=== PATIENT | female | born 1960 | race Caucasian/White ===

== ENCOUNTER 2021-10-21 09:50 | Outpatient (AMB) | payer MEDICAID, SELFPAY ==
--- NOTE | 2021-10-21 11:25 | RT.TREATMENT ---
Office Procedures RT Procedures Procedures EEG Extended Monitoring Awake/Drowsy: Yes
== END 2021-10-21 11:23 | disposition home or self-care (01) ==
LOC: HODRTX 09:50
PROVIDERS: PCP Specialist; Visit Provider Family Medicine
DX: R56.9 Unspecified convulsions (principal)

== ENCOUNTER 2024-06-24 11:49 | Inpatient (IN) | payer MEDICAID, SELFPAY ==
[2024-06-24] VITALS (12 sets, daily range): BP systolic 149–172; BP diastolic 81–96; PULSE 73–104; RESP 17–98; TEMP 36.7–37.2; O2SAT 94–99; BMI 35.6; BMI 34.8
--- NOTE | 2024-06-24 | XR_ITS ---
MRI abdomen, without contrast. MRCP Date and time of exam: June 24, 2024 1413 hours INDICATIONS: Elevated liver function tests today with abdominal pain nausea and vomiting Technique: Multiple axial and coronal images of the abdomen have been obtained with the Siemens 1.5T MRI scanner. Images obtained included T1 weighted transverse images, T2-weighted transverse images, T2-weighted transverse images fat-suppressed, T2 weighted haste fat suppressed transverse images, T1 weighted images, in and out of phase images, T2-weighted coronal images, breath hold, T2 weighted haze coronal images as well as T2 weighted coronal thick slab images, MRCP. Findings: No focal liver lesions Gallstones Gallbladder wall is thickened and edematous Common hepatic or common bile duct normal size no stones No pancreatic edema No dilated pancreatic duct Negative for splenomegaly Benign bilateral small renal cyst No hydronephrosis IMPRESSION: Acute calculus cholecystitis Negative for common hepatic or common bile duct stones
--- NOTE | 2024-06-24 11:53 | EKG_ITS ---
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
--- NOTE | 2024-06-24 12:03 | XR_ITS ---
Examination: AP chest single view Technique one AP portable upright chest single view Exam date and time: June 24, 2024 at 1234 hours Comparison the 2023 INDICATIONS: Severe chest pain shortness of breath beginning 2 days ago. FINDINGS: Normal heart size No pneumonia or pulmonary edema Moderate osteopenia IMPRESSION: No active disease
--- NOTE | 2024-06-24 12:05 | PD.EDCHEST ---
ED Chest Pain RME/HPI General Chief Complaint: Chest Pain Stated Complaint: CHEST PAIN Time Seen by Provider: 06/24/24 12:01 Arrival date/time: 06/24/24 11:49 RME / HPI RME / HPI narrative: 63-year-old female patient with significant history of hypertension, diabetes mellitus, hypercholesterolemia came in for evaluation regarding midsternal chest pain. Onset of symptoms since 3 AM this morning as pain to the midsternal area, radiating to both side of the chest, described as sharp pain, severity moderate. Patient also complained of nausea. Denies any vomiting denies any diarrhea denies any cough denies any fever. Patient told me that she stopped all her diabetic and blood pressure medication because it is giving a lot of side effects. No medication was taken prior to arrival. Related Data Home Medications ?Medication ?Instructions ?Recorded ?Confirmed atorvastatin 20 mg tablet 20 mg PO QDAY 07/08/22 07/08/22 empagliflozin 12.5 mg-metformin ER 2 tab PO HS 07/08/22 07/08/22 1,000 mg tablet,extended rel 24 hr (Synjardy XR) ergocalciferol (vitamin D2) 1,250 See Rx Instructions .Route .COMPLEX 07/08/22 07/08/22 mcg (50,000 unit) capsule (Vitamin D2) hydrocodone 5 mg-acetaminophen 325 5 - 325 tab PO BID PRN Pain 07/08/22 07/08/22 mg tablet ibuprofen 800 mg tablet 800 mg PO TID 07/08/22 07/08/22 levetiracetam 1,000 mg tablet 1,000 mg PO BID 07/08/22 07/08/22 lisinopril 20 mg tablet 20 mg PO QDAY 07/08/22 07/08/22 loratadine 10 mg tablet 10 mg PO DAILY 07/08/22 07/08/22 naproxen 500 mg tablet,delayed 500 mg PO BID PRN Pain 07/08/22 07/08/22 release ondansetron HCl 4 mg tablet 4 mg PO Q8H PRN Nausea 07/08/22 07/08/22 sertraline 50 mg tablet 50 mg PO QDAY 07/08/22 07/08/22 Previous Rx's ?Medication ?Instructions ?Recorded vancomycin 1,000 mg intravenous See Rx Instructions .Route 07/16/22 injection .COMPLEX #10 ea Allergies Allergy/AdvReac Type Severity Reaction Status Date / Time codeine (From Allergy Severe itch Verified 06/24/24 11:51 Tylenol-Codeine) Review of Systems Review of Systems Narrative Review of Systems: Review of system reviewed and within normal limits except mentioned in HPI ED Exam Narrative Physical exam: VITAL SIGNS: Reviewed. GENERAL APPEARANCE: Alert and interactive, follows commands, no acute distress, HEAD AND FACE: Non-traumatic. ENT: PERRL, pink conjunctivitis, eyelid no trauma, Mucous membrane moist. NECK: Supple, nontender, no nuchal rigidity. CHEST: Substernal chest tenderness, no crepitus, no paradoxical movement, no retractions. LUNGS: Clear, well ventilated, symmetric, no rales, no wheezing, no ronchi, no stridor, good breath sounds bilaterally. HEART: Regular rate, regular rhythm, no murmur, no gallops. ABDOMEN: Soft, positive bowel sounds, nondistended, no guarding, right upper quadrant tenderness, positive Ramirez sign, no rebound, no masses, RECTAL: Deferred. GENITAL: Deferred. NEUROLOGICAL: Gross motor function intact sensory function intact, Appropriate for age. MUSCULOSKELETAL: low back nontender, full range of motion. EXTREMITIES: Nontender, full range of motion. SKIN: Color pink, dry, no rash, no lacerations, no abrasions, no contusions. LYMPHATICS: Deferred. 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 Operator NOW Care 06/24/24 12:03 Active Decision to Admit X1 Care 06/24/24 15:25 Active EKG (ED ONLY) *Do not use* NOW Care 06/24/24 11:53 Completed MRI Screening NOW Care 06/24/24 13:28 Active Consult to Gastroenterology Stat Cons 06/24/24 15:17 Ordered EKG (ED Only) Stat Exams 06/24/24 11:53 Ordered MR MRCP Stat Exams 06/24/24 Completed US gall bladder Stat Exams 06/24/24 13:13 Stop Req XR chest 1V Stat Exams 06/24/24 12:03 Completed Bilirubin,Direct Stat Lab 06/24/24 13:33 Completed CBC Stat Lab 06/24/24 12:20 Completed Comprehensive Metabolic Panel Stat Lab 06/24/24 12:20 Completed Hepatitis Acute Panel Stat Lab 06/24/24 13:33 Completed Lipase Stat Lab 06/24/24 12:20 Completed Troponin I Stat Lab 06/24/24 12:20 Completed HYDROmorphone INJ [Dilaudid Inj] Med 06/24/24 15:33 Once 1 mg IVP X1 ONE Morphine Inj Med 06/24/24 15:34 Once 4 mg IVP X1 ONE Piper/Tazo 3.375 gm Premix [Zosyn] Med 06/24/24 13:21 Discontinued 3.375 gm in 50 ml IV X1 Ringers Lactated 1000 ml [Lactated Ringers] 1,000 ml Med 06/24/24 13:21 Discontinued IV 999 mls/hr hydrALAZINE INJ [Apresoline Inj] Med 06/24/24 13:21 Discontinued 10 mg IV X1 ONE mg Hyd/Al Hyd/Car Susp [Maalox Susp] Med 06/24/24 12:35 Discontinued 30 ml PO X1 ONE Vital Signs Vital signs: Vital Signs Temperature 99.0 F 06/24/24 12:02 Pulse Rate 81 06/24/24 12:02 Respiratory Rate 20 06/24/24 12:02 Blood Pressure 172/96 H 06/24/24 12:02 Pulse Oximetry (%) 94 L 06/24/24 12:02 Oxygen Delivery Method Room Air 06/24/24 12:02 Chest Pain MDM Narrative MDM Narrative:: 63-year-old female patient with significant history of hypertension, diabetes mellitus, hypercholesterolemia came in for evaluation regarding midsternal chest pain. Onset of symptoms since 3 AM this morning as pain to the midsternal area, radiating to both side of the chest, described as sharp pain, severity moderate. Patient also complained of nausea. Denies any vomiting denies any diarrhea denies any cough denies any fever. Patient told me that she stopped all her diabetic and blood pressure medication because it is giving a lot of side effects. No medication was taken prior to arrival. EKG as interpreted by showed sinus rhythm, ventricular to 81 bpm, no ST segment elevation depression noted. CBC showed leukocytosis of 12.3 total bili of 1.9, direct bili 0.9 AST of 568 ALT of 550 alkaline phos of 177. MRCP showed acute calculus cholecystitis, no common bile duct stone or dilatation noted. Patient received IV fluids, morphine IV and IV Zosyn. Plan of care discussed with the patient, including admission. Case discussed with Dr. Persaud, general surgeon on-call, discussed the case, and was asking me if I can asked the hospitalist admit the patient. Discussed with hospitalist who admitted the patient. Patient data External records reviewed:: None Clinical information provided by:: patient and family Social determinants that could affect healthcare access:: none Patient has the following chronic illnesses:: Hypertension, diabetes mellitus not on any medication. How is presenting disease/condition affected by chronic disease/condition?: exacerbated by Evaluation data The following diagnostics were reviewed and interpreted by me:: lab results, radiology exam(s) and EKG tracing(s) Lab and/or radiology exams considered but not ordered:: None Interpretation Summary: See results MDM Medications / Prescriptions Medications or Prescriptions considered but not ordered:: None Medication administrations:: Medication Administration History Hydromorphone HCl (Hydromorphone Inj 2 Mg/Ml Vial) 1 mg IVP X1 ONE Stop: 06/24/24 15:34 Morphine Sulfate (Morphine Sulf Inj 10 Mg/Ml Vial) 4 mg IVP X1 ONE Stop: 06/24/24 15:35 Discontinued Medications Al Hydrox/Mg Hydrox/Simethicone (Mg Hyd/Al Hyd/Car (Maalox Reg) Susp 30 Ml Udc) 30 ml PO X1 ONE Stop: 06/24/24 12:36 Last Admin: 06/24/24 12:52 Dose: 30 ml Documented By: MADHURI Hydralazine HCl (Hydralazine Inj 20 Mg/Ml Vial) 10 mg IV X1 ONE Stop: 06/24/24 13:22 Last Admin: 06/24/24 13:35 Dose: 10 mg Documented By: MADHURI Piperacillin/Tazobactam/Dextrose (Zosyn) 3.375 gm in 50 mls @ 100 mls/hr IV X1 ONE Stop: 06/24/24 13:50 Last Infusion: 06/24/24 14:08 Dose: Infused Documented By: Admin: 06/24/24 13:38 Dose: 100 mls/hr Documented By: MADHURI Lactated Ringer's (Lactated Ringers) 1,000 mls @ 999 mls/hr IV .Q1H1M ONE Stop: 06/24/24 14:21 Last Admin: 06/24/24 14:42 Dose: 999 mls/hr Documented By: FC IV fluids, hydralazine, Maalox, morphine and IV Zosyn Consultations Consultation(s) initiated? (list below): Yes Consultation #1 (Physician, Specialty, Details): Dr Branch, general surgeon call, discussed case, to get DrBella Diagnosis Chest Pain Differential Diagnosis: pneumothorax, stable angina and other (Cholelithiasis, acute calculus cholecystitis) Most likely diagnosis given after review of the tests above:: Acute calculus cholecystitis Admission Indicated Admission indicated?: indicated Admission Request Was there a request for admission?: Yes Admission Attestation Admission request attestation: Discussed case with [Dr. Hylton] from Hospitalist service regarding admission. Discussed patients ED course, exam findings, labs, and radiology results. The Hospitalist [agrees] to accept the patient for admission. Disposition Plan Disposition Plan: Admit Discharge Plan Plan Patient Disposition: Admit Acute Care w/in Hospital Disposition Comment: Stable Prescriptions/Referrals Prescriptions/Med Rec: No Action atorvastatin 20 mg Tablet 20 mg PO QDAY ibuprofen 800 mg Tablet 800 mg PO TID hydrocodone-acetaminophen 5-325 mg Tablet 5 - 325 tab PO BID PRN (Reason: Pain) lisinopril 20 mg Tablet 20 mg PO QDAY ondansetron HCl 4 mg Tablet 4 mg PO Q8H PRN (Reason: Nausea) naproxen 500 mg Tablet,Delayed Release (Dr/Ec) 500 mg PO BID PRN (Reason: Pain) ergocalciferol (vitamin D2) [Vitamin D2] 1,250 mcg (50,000 unit) Capsule See Rx Instructions .ROUTE .COMPLEX Rx Instructions: 1,250 mcg orally q thursday sertraline 50 mg Tablet 50 mg PO QDAY loratadine 10 mg Tablet 10 mg PO DAILY levetiracetam 1,000 mg Tablet 1,000 mg PO BID Synjardy XR 12.5-1,000 mg Tablet, Ir - Er, Biphasic 24hr 2 tab PO HS vancomycin 1,000 mg recon soln See Rx Instructions .ROUTE .COMPLEX Qty: 10 0RF Rx Instructions: 1gm IV QD till 07/24/22 Referrals: Brea Gonsales PA-C [Primary Care Provider] - In 1 week Problem List Clinical Impression: Acute calculous cholecystitis Patient/Caregiver Discharge Instructions Print Language: Bengali Stand Alone Forms: Clotilde Award Info., Patient Portal Info Letter
--- NOTE | 2024-06-24 12:21 | PC.NURSE ---
Patient in room on [facility]. Patient states chest pain described as pressure that started approx 3AM this morning that woke her from her sleep. Patient stated she took an aspirin around 5AM with no relief. Patient connected to monitors. Workup in progress.
[2024-06-24 12:32] LABS: Basophils # (Auto) 0.1 Thou/mm3 (0.0-0.2); Basophils % (Auto) 1 % (0-2.5); Eosinophils # (Auto) 0.2 Thou/mm3 (0.0-0.5); Eosinophils % (Auto) 1 % (0-10); Hematocrit 41.9 % (36.0-46.0); Hemoglobin 14.3 g/dL (12.0-16.0); Immature Granulocytes % (Auto) 1 % (0-0); Immature Granulocytes Auto 0.07 Thou/mm3 (0.00-0.00); Lymphocytes # (Auto) 2.2 Thou/mm3 (1.0-4.8); Lymphocytes % (Auto) 18 % (10-50); Mean Corpuscular HGB Conc 34.1 g/dl (31.0-37.0); Mean Corpuscular Hemoglobin 29.9 pg (25.0-35.0); Mean Corpuscular Volume 88 fL (80-100); Monocytes # (Auto) 0.9 Thou/mm3 (0.0-0.8); Monocytes % (Auto) 7 % (0-12); Neutrophils # (Auto) 8.8 Thou/mm3 (1.8-7.7); Neutrophils % (Auto) 72 % (37-80); Nucleated Red Blood Cell % 0 /100 WBC (0); Platelet Count 285 Thou/mm3 (140-440); RDW Standard Deviation 42.9 fL (36.4-46.3); Red Blood Count 4.79 Miln/mm3 (4.00-5.20); White Blood Count 12.3 Thou/mm3 (3.6-11.0)
[2024-06-24 12:51] LABS: Alanine Aminotransferase 550 U/L (10-49); Albumin, Serum 4.4 gm/dL (3.4-4.8); Albumin/Globulin Ratio 1.6 (1.2-2.2); Alkaline Phosphatase 177 U/L (46-116); Anion Gap 7 (7-16); Aspartate Amino Transferase 568 U/L (0-34); BUN/Creatinine Ratio 13 Ratio (12-20); Bilirubin,Total 1.9 mg/dL (0.3-1.2); Blood Urea Nitrogen 9 mg/dL (9-23); Calcium 9.2 mg/dL (8.3-10.6); Calcium (Corrected) 9.2 mg/dL (8.5-10.1); Carbon Dioxide 24.5 mMol/L (20.0-31.0); Chloride 107 mMol/L (98-107); Creatinine (Component) 0.7 mg/dL (0.6-1.3); Estimated Creatinine Clearance 81.8 mL/min (>60); Globulin 2.8 gm/dL (2.3-3.5); Glucose 161 mg/dL (74-106); Lipase 27 U/L (12-53); Osmolality,Calculated 277 (275-295); Potassium 4.2 mMol/L (3.4-5.1); Sodium 138 mMol/L (136-145); Total Protein 7.2 gm/dL (5.7-8.2); Troponin I < 0.020 ng/mL (0.0-0.045); eGFR > 60 See Note
[2024-06-24] MEDS: MG HYD/AL HYD/SIME (Maalox Reg) SUSP 30 ML UDC PO (12:52)
--- NOTE | 2024-06-24 13:13 | XR_ITS ---
Examination: Abdomen sonogram, Limited Date and time of exam: June 24, 2024 1447 hours INDICATIONS: Epigastric pain and vomiting today Technique: Real-time olivo scale transabdominal sonographic images of the upper abdomen obtained. Findings: Calcifications in the gallbladder wall, 18 mm gallstone Gallbladder wall 0.3 cm Common bile duct 0.3 cm Pancreatic head 2.8 cm Liver 17.5 cm fatty infiltration Normal hepatopedal portal venous flow Patent IVC IMPRESSION: Porcelain gallbladder Cholelithiasis, negative for cholecystitis Mild hepatomegaly
[2024-06-24] MEDS: hydrALAZINE INJ 20 MG/ML VIAL 10 MG IV (13:35)
[2024-06-24] MEDS: PIPER/TAZO 3.375 GM PREMIX 3.375 GM/50 ML BAG IV ×2 (13:38→16:54)
[2024-06-24 14:11] LABS: Bilirubin,Direct 0.9 mg/dL (0.0-0.3)
[2024-06-24] MEDS: RINGERS LACTATED 1000 ML 1,000 ML 999 ML IV (14:42)
[2024-06-24 14:43] LABS: Hepatitis A Antibody IgM Non Reactive (Non React); Hepatitis B Core Antibody IgM Non Reactive (Non React); Hepatitis B Surface Antigen Non Reactive (Non React); Hepatitis C Antibody Non Reactive (Non React)
[2024-06-24] MEDS: MORPHINE SULF INJ 10 MG/ML VIAL 4 MG IVP (15:49)
--- NOTE | 2024-06-24 16:07 | EKG_ITS ---
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
--- NOTE | 2024-06-24 16:23 | ESHP_ITS ---
<Statement entered by Donald Borrego MD - 06/25/24 07:38> I discussed with and supervised the clinical nursing intern physician involved in the care of this patient. Patient assessment and plan was discussed with entire medicine team, including my attending. I agree with the assessment and plan as documented by clinical nursing intern doctor. Patient care was discussed with my attending physician Dr. Benjamin Borrego, PGY-2 Documentation for date of: 06/24/24 HPI History of Present Illness Chief complaint: Abdominal pain. History of present illness: Ms. Russell is a 63-year-old female with past medical history of [id number] type 2 diabetes mellitus, asthma, dyslipidemia, seizure disorder, history of meningioma, essential hypertension and obesity who presented to [facility] emergency department on 06/24/2024 with a chief complaint of abdominal pain. Patient describes the pain in epigastric region, radiating down to the right and left upper quadrant, reports significant tenderness. Patient reported that the pain started 3 AM in the morning radiating to chest, patient describes the pain as sharp, 10/10 associated with nausea and dry heaving. Patient also complains of excessive diaphoresis during the pain episode and does complain of chills as well. Patient also complains of throbbing headache. Patient denies any vomiting, diarrhea, cough, fever, dizziness, shortness of breath, and syncope like episodes. Patient reports taking no medications at home, reported that she stopped medications about 6 months ago, denies having a seizure recently, did report that she did have 1 episode of seizure but did not follow-up with primary care physician or neurologist. Patient reports she has been taking aspirin daily at home, last aspirin dose this morning. Otherwise denies taking any medications. Patient is noncompliant with medications, has longstanding history of medical noncompliance. ED Course: ED Vitals: ED vitals blood pressure 172/96, heart rate 91, respiratory 20, temp 99.0, O2 sat 94 on room air ED Labs: ED labs significant for WBC 12.3, hemoglobin 14.3, hematocrit 41.9, MCV 88, MCH 29.9, MCHC 34.1, platelet count 285, sodium 138, potassium 4.2, chloride 170, venous CO2 24.5, BUN 9, creatinine 0.7, GFR more than 60, glucose 161, calcium 9.2, total bilirubin 1.9, direct bilirubin 0.9, AST 568 ALT 550, alk phos 177, troponin negative, albumin 4.4, globulin 2.8 lipase 27 and hep panel was nonreactive. ED Imaging:Gallbladder ultrasound shows porcelain gallbladder, cholelithiasis negative for cholecystitis chest x-ray shows no active disease MRCP shows acute calculus cholecystitis ED Treatment: Patient was given Maalox x 1, hydralazine 10 mg IV x 1, and Zosyn x 1, 1 L LR bolus and morphine 4 mg IVP x 1 in ED. General surgery was consulted in ED, recommended admission. Review of Systems Review of Systems Narrative Review of Systems: ROS: -CONSTITUTIONAL: Denies weight loss, positive for fever and chills. -HEENT: Denies changes in vision and hearing. -RESPIRATORY: Denies SOB and cough. -CV: Denies palpitations and Chest Pain. -GI: Positive for abdominal pain, nausea, vomiting, denies constipation and diarrhea. -: Denies dysuria and urinary frequency. -MSK: Denies myalgia and joint pain. -SKIN: Denies rash and pruritus. -NEUROLOGICAL: Denies headache and syncope. Positive for history of seizures. -PSYCHIATRIC: Denies recent changes in mood. Denies anxiety and depression. Past Medical History Past Medical History Comments PMH COMMENT: PMH: Positive for [id number]-xcdbsbngz type 2 diabetes mellitus, asthma, dyslipidemia, seizure disorder, history of meningioma, essential hypertension and obesity. Endorses history of depression, was on Prozac in the past. PSHx: CT-guided abscess drainage for parotid gland. Allergies: Codeine?itching Social history: -Smoking: Current active smoker-smokes 1 pack in 3 to 4 days, since she was 17. 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 Exam Vital Signs Temp Pulse Resp BP Pulse Ox O2 Del Method 98.1 F 92 20 149/92 H 98 Room Air 06/24/24 16:00 06/24/24 16:21 06/24/24 16:21 06/24/24 16:00 06/24/24 16:21 06/24/24 16:00 Narrative Exam Physical Exam General: Awake and in no acute distress. Conversational and non-toxic appearing. HEENT: Normocephalic, atraumatic, mucous membranes moist. Heart: Tachycardic and regular rhythm, no murmurs. Lungs: Clear to auscultation with no wheezing or crackles. Abdomen: Soft, nondistended, positive tenderness noted epigastrium, right upper quadrant and left upper quadrant. Neurologic: Alert and oriented x3, no gross neurological deficit, and patient able to move all 4 extremities. Extremities: No edema. Skin: No rash or ecchymoses. Results: Labs 06/25/24 04:33 06/25/24 04:33 Labs: Short CBC 06/24/24 Range/Units 12:20 WBC 12.3 H (3.6-11.0) Thou/mm3 Hgb 14.3 (12.0-16.0) g/dL Hct 41.9 (36.0-46.0) % Plt Count 285 (140-440) Thou/mm3 BMP 06/24/24 12:20 Sodium 138 Potassium 4.2 Chloride 107 Carbon Dioxide 24.5 BUN 9 Creatinine 0.7 Glucose 161 H Calcium 9.2 Cardiac Enzymes 06/24/24 Range/Units 12:20 Troponin I < 0.020 (0.0-0.045) ng/mL Liver Function 06/24/24 06/24/24 Range/Units 12:20 13:33 Total Bilirubin 1.9 H (0.3-1.2) mg/dL Direct Bilirubin 0.9 H (0.0-0.3) mg/dL AST 568 H* (0-34) U/L ALT 550 H* (10-49) U/L Alkaline Phosphatase 177 H (46-116) U/L Albumin 4.4 (3.4-4.8) gm/dL Quality Measures Quality Measures none Medications Home Medications and Allergies Home Medications ?Medication ?Instructions ?Recorded ?Confirmed ?Type atorvastatin 20 mg tablet 20 mg PO QDAY 07/08/2206/24 History empagliflozin 12.5 mg-metformin ER 2 tab PO HS 3 06/24/24 History 1,000 mg tablet,extended rel 24 hr (Synjardy XR) ergocalciferol (vitamin D2) 1,250 See Rx Instructions .Route .COMPLEX 07/08/22 06/24/24 History mcg (50,000 unit) capsule (Vitamin D2) hydrocodone 5 mg-acetaminophen 325 5 - 325 tab PO BID PRN Pain 07/08/22 06/24/24 History mg tablet levetiracetam 1,000 mg tablet 1,000 mg PO BID 07/08/22 06/24/24 History lisinopril 20 mg tablet 20 mg PO QDAY 07/08/2206/24 History loratadine 10 mg tablet 10 mg PO DAILY 07/08/2206/07 History naproxen 500 mg tablet,delayed 500 mg PO BID PRN Pain 07/08/22 06/24/24 History release ondansetron HCl 4 mg tablet 4 mg PO Q8H PRN Nausea 05/0106/24/24 History sertraline 50 mg tablet 50 mg PO QDAY 07/08/2206/24 History tirzepatide 2.5 mg/0.5 mL 2.5 mg subcut QWEEK 06/24/24 06/24/24 History subcutaneous pen injector (Lazara) Allergies Allergy/AdvReac Type Severity Reaction Status Date / Time codeine (From Allergy Severe itch Verified 06/24/24 11:51 Tylenol-Codeine) Visit Medications Acetaminophen (Acetaminophen 325 Mg Tablet) 650 mg PO Q6H PRN PRN Reason: Pain (1-3) & Fever >101.5 Stop: 07/24/24 15:59 Hydrocodone Bitart/Acetaminophen (Hydrocodone/Apap 5/325 Tablet) 1 tab PO Q4HR PRN PRN Reason: PAIN SCALE 4-6 (Moderate Stop: 06/29/24 16:04 Al Hydrox/Mg Hydrox/Simethicone (Mg Hyd/Al Hyd/Car (Maalox Reg) Susp 30 Ml Udc) 30 ml PO Q6H PRN PRN Reason: Indigestion Stop: 07/24/24 16:04 Albuterol/Ipratropium (Albuterol/Ipratropium (Duoneb) Rt Cornelia 3 Ml Nebu) 3 ml INH Q2HR PRN PRN Reason: SHORTNESS OF BREATH OR WHEEZE Stop: 07/24/24 15:59 Amlodipine Besylate (Amlodipine Besylate 5 Mg Tablet) 5 mg PO QDAY [facility] Stop: 07/24/24 16:29 Dextrose (Dextrose 50%-Water Inj 50 Ml Syringe) 25 ml IV Q15MIN PRN PRN Reason: BG 50-70 responsive npo pt Stop: 07/24/24 16:10 Dextrose (Dextrose 50%-Water Inj 50 Ml Syringe) 50 ml IV Q15MIN PRN PRN Reason: BG <50 OR BG <70 & pt unresponsive Stop: 07/24/24 16:10 Famotidine (Famotidine Inj 10 Mg/Ml Vial 2 Ml) 20 mg IVP QDAY [facility] Stop: 07/24/24 16:14 Glucagon (Glucagon Inj 1 Mg Vial) 1 mg IM Q15MIN PRN PRN Reason: BG <70, and no IV access Heparin Sodium (Porcine) (Heparin Sod Inj 5000 Unit/Ml Vial) 5,000 unit SC Q12H [facility] Stop: 07/08/24 21:59 Piperacillin/Tazobactam/Dextrose (Zosyn) 3.375 gm in 50 mls @ 12.5 mls/hr IV Q8H [facility] Stop: 07/01/24 16:59 Insulin Human Regular (Insulin Hum Regular 1 Unit/0.01 Ml (Per Unit)) 0 unit SC [facility]; Protocol Stop: 07/24/24 16:59 Morphine Sulfate (Morphine Sulf Inj 10 Mg/Ml Vial) 2 mg IVP Q4H PRN PRN Reason: PAIN SCALE 7-10 (Severe Stop: 06/29/24 16:04 Ondansetron HCl (Ondansetron Inj 2 Mg/Ml Inj 2 Ml) 4 mg IV Q6H PRN; Protocol PRN Reason: NAUSEA OR VOMITING Stop: 07/24/24 16:04 Discontinued Medications Al Hydrox/Mg Hydrox/Simethicone (Mg Hyd/Al Hyd/Car (Maalox Reg) Susp 30 Ml Udc) 30 ml PO X1 ONE Stop: 06/24/24 12:36 Last Admin: 06/24/24 12:52 Dose: 30 ml Amlodipine Besylate (Amlodipine Besylate 5 Mg Tablet) 10 mg PO QDAY [facility] Stop: 07/24/24 16:29 Hydralazine HCl (Hydralazine Inj 20 Mg/Ml Vial) 10 mg IV X1 ONE Stop: 06/24/24 13:22 Last Admin: 06/24/24 13:35 Dose: 10 mg Hydromorphone HCl (Hydromorphone Inj 2 Mg/Ml Vial) 1 mg IVP X1 ONE Stop: 06/24/24 15:34 Last Admin: 06/24/24 15:48 Dose: Not Given Piperacillin/Tazobactam/Dextrose (Zosyn) 3.375 gm in 50 mls @ 100 mls/hr IV X1 ONE Stop: 06/24/24 13:50 Last Infusion: 06/24/24 14:08 Dose: Infused Lactated Ringer's (Lactated Ringers) 1,000 mls @ 999 mls/hr IV .Q1H1M ONE Stop: 06/24/24 14:21 Last Infusion: 06/24/24 15:40 Dose: Infused Morphine Sulfate (Morphine Sulf Inj 10 Mg/Ml Vial) 4 mg IVP X1 ONE Stop: 06/24/24 15:35 Last Admin: 06/24/24 15:49 Dose: 4 mg Assessment & Plan Plan Assessment and plan: Summary: Ms. Russell is a 63-year-old female with past medical history of yns-rjkjugb-zvhewgviv type 2 diabetes mellitus, asthma, dyslipidemia, seizure disorder, history of meningioma, essential hypertension and obesity who presented to [facility] emergency department on 06/24/2024 with a chief complaint of abdominal pain. #Acute calculus cholelithiasis #Transaminitis secondary to above #Hyperbilirubinemia secondary to above #Elevated Alk Phos. secondary to above Patient had epigastric pain, radiating to the left upper quadrant, 10 on 10, sharp, radiating to chest at times associated with nausea dry heaving chills and diaphoresis, started suddenly in the morning around 3 AM. Gallbladder ultrasound shows porcelain gallbladder, cholelithiasis negative for cholecystitis. MRCP shows acute calculus cholecystitis Total bilirubin 1.9, direct bilirubin 0.9, AST 568 ALT 550, alk phos 177, troponin negative. Lipase negative. RCRI risk score:2 , METS > 4 Plan: -Scheduled for surgical intervention in a.m., n.p.o. after midnight -Pain management with Tylenol, [place], IV morphine as needed -IV Zosyn 3.375 every 8 hours prophylactic -Zofran as needed for nausea and vomiting -General surgery consulted, appreciate recommendations -Follow CMP in a.m. -Will consult cardiology for cardiac clearance preop -Will hold on any anticoagulation in a.m., hold aspirin #Seizure disorder #Meningioma, by history Patient reports taking no medications at home, reported that she stopped medications about 6 months ago, denies having a seizure recently, did report that she did have 1 episode of seizure but did not follow-up with primary care physician or neurologist. Patient was on Keppra 1000 mg twice daily previously. - Resumed IV Keppra 1000 mg twice daily - Consulted neurology, appreciate recommendations - Seizure precaution - Aspiration precaution #Congestive heart failure with mid-range ejection fraction, EF 45 to 50% (2022) Poor outpatient follow-up, is not on any medications, currently not in any acute exacerbation ECHO 2022: Normal LV size, low normal systolic function. Moderate hypokinesis apical and mid septal wall motion. Estimated EF 45-50% Normal RV size and function. Trace TR. Plan: - Consulted cardiology, appreciate recommendations - Strict intake and output - Daily weight - Fluid restriction 1800 cc - Ordered echocardiogram #Hypertensive urgency #Throbbing headache #Hypertension Patient presented with blood pressure 172/96, was given hydralazine 10 mg IV x 1 in emergency department Plan: - As needed IV hydralazine every 6 hours for SBP greater than 160, diastolic blood pressure greater than 100 - Amlodipine 5 mg daily #Type 2 diabetes mellitus July 2022 hemoglobin A1c 9.6 - Sliding scale insulin - Inpatient blood glucose goal 140-180 - Hypoglycemia protocol - Fingerstick ACHS - Follow hemoglobin A1c in a.m. #Hyperlipidemia Will hold statins in setting of transaminitis Follow lipid panel in a.m. #Asthma DuoNeb as needed DVT prophylaxis: Heparin every 12 hours GI prophylaxis: Famotidine IV Diet: Carb consistent diet, n.p.o. after midnight Lines: Peripheral IV Code status: Full code Case discussed with Attending Dr. Alexander and Dr. Borrego PGY2. Mark Hylton PGY1 Disclaimer: This note was dictated by speech recognition. Minor errors in financial supervisor may be present due to voice recognition software. Attending Provider Attestation/Addendum I have discussed and was present for the essential components of the history, physical examination, diagnosis, and treatment plan with the resident. I agree with the patient's care as documented by the resident and amended herein by me. Bertram Alexander DO. Although this document has been carefully reviewed, there may still be some phonetic and other typographical errors. These errors are purely grammatical due to imperfections in the software program and should not be construed in any way to compromise the substance of the patient's medical care during this visit.
[2024-06-24] MEDS: FAMOTIDINE INJ 10 MG/ML VIAL 2 ML 20 MG IVP (16:53)
[2024-06-24] MEDS: amLODIPine BESYLATE 5 MG TABLET PO (16:53)
--- NOTE | 2024-06-24 19:12 | PD.SURCONS ---
HPI Consult details Consult date: 06/24/24 Reason for consultation narrative: Patient was seen in consultation because of gallstones and acute cholecystitis History of present illness: History of present illness revealed that the patient has had severe pain starting last night in the retrosternal area and in the upper abdomen radiating to both sides. She had no vomiting but she was nauseated. She denies having any such symptoms. She thought that she had a cardiac issue and therefore came to the emergency room and was found to have gallstones with possible acute cholecystitis. Patient has been diagnosed with gallstones back in 2022 but apparently no surgery was done. Patient had multiple medical problems including diabetes hypertension meningioma seizures. Past surgery consisted of some cyst from the abdomen while she was 22 years old. She also had multiple abscesses in the neck in the parotid region which was drained by me in 2022. She used to weigh more and she has lost some weight. She is a poor historian. Past Medical History Past Medical History NEUROLOGIC: Negative Seizures CARDIAC: Negative Cardiac Disorders or Congestive Heart Failure RESPIRATORY: Positive Asthma; Negative Respiratory Disorders or Chronic Obstructive Pulmonary Disease (COPD) GASTROINTESTINAL: Positive Gall Bladder Disease, Ulcer, Gastroesophageal Reflux Disease and Obesity GENITOURINARY: Negative Renal Disease MUSCULOSKELETAL: Positive Arthritis ENDOCRINE: Positive Endocrine Disorders; Negative Diabetes Mellitus Type 1 or Diabetes Mellitus Type 2 HEMATOLOGIC: Negative Sickle Cell Disease OTHER HISTORY: Positive Radiation Therapy; Negative Blood Transfusions or Anesthesia Reactions Surgical History SURGICAL: Positive Hysterectomy Social History SMOKING STATUS: Current every day smoker SUBSTANCE USE: does not use Past Medical History Comments PMH COMMENT: PMH: Positive for tvj-kvjdikd-hajbvsqxh type 2 diabetes mellitus, asthma, dyslipidemia, seizure disorder, history of meningioma, essential hypertension and obesity. Endorses history of depression, was on Prozac in the past. PSHx: CT-guided abscess drainage for parotid gland. Allergies: Codeine?itching Social history: -Smoking: Current active smoker-smokes 1 pack in 3 to 4 days, since she was 17. 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 Meds Home Medications and Allergies Home Medications ?Medication ?Instructions ?Recorded ?Confirmed ?Type atorvastatin 20 mg tablet 20 mg PO QDAY 07/08/22 07/08/22 History empagliflozin 12.5 mg-metformin ER 2 tab PO HS 07/08/22 07/08/22 History 1,000 mg tablet,extended rel 24 hr (Synjardy XR) ergocalciferol (vitamin D2) 1,250 See Rx Instructions .Route .COMPLEX 07/08/22 07/08/22 History mcg (50,000 unit) capsule (Vitamin D2) hydrocodone 5 mg-acetaminophen 325 5 - 325 tab PO BID PRN Pain 07/08/22 07/08/22 History mg tablet ibuprofen 800 mg tablet 800 mg PO TID 07/08/22 07/08/22 History levetiracetam 1,000 mg tablet 1,000 mg PO BID 07/08/22 07/08/22 History lisinopril 20 mg tablet 20 mg PO QDAY 07/08/22 07/08/22 History loratadine 10 mg tablet 10 mg PO DAILY 07/08/22 07/08/22 History naproxen 500 mg tablet,delayed 500 mg PO BID PRN Pain 07/08/22 07/08/22 History release ondansetron HCl 4 mg tablet 4 mg PO Q8H PRN Nausea 07/08/22 07/08/22 History sertraline 50 mg tablet 50 mg PO QDAY 07/08/22 07/08/22 History Allergies Allergy/AdvReac Type Severity Reaction Status Date / Time codeine (From Allergy Severe itch Verified 06/24/24 11:51 Tylenol-Codeine) Exam Vital Signs Temp Pulse Resp BP Pulse Ox O2 Del Method 98.1 F 104 H 20 149/92 H 98 Room Air 06/24/24 16:00 06/24/24 16:53 06/24/24 16:21 06/24/24 16:53 06/24/24 16:21 06/24/24 16:00 Narrative Exam Physical examination revealed an obese white female who appeared to be in her stated age. She is 5 foot 1 inch tall weighing 189 pounds with BMI of 35.7. Her heart rate is around 100 when I saw her Routine Abdominal Exam Comments: Examination of the abdomen showed subcostal incision from previous exploration for some cyst the details of which are not available there is slight tenderness on palpation of the right upper quadrant. Routine Rectal Exam Comments: Deferred Routine Neurological Exam Comments: History of seizures and history of meningioma not operable Results Results: Laboratory Laboratory Narrative: Laboratory results show mildly elevated WBCs 12,400. But she has considerable elevation of the transaminases. 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 Patient had MRCP which showed acute cholecystitis but no common bile duct stone Assessment & Plan Additional Assessment Additional comments: Impression: Cholelithiasis with possible common bile duct stone, passed spontaneously Diabetes Hypertension Hyperlipidemia Obesity Plan Plan: I told the patient that she may require surgery because of the symptomatic gallstones. Elevated liver enzymes suggest that she might of passed a stone. We shall wait for symptoms to improve and consider cholecystectomy. Because of the right subcostal incision patient may require open cholecystectomy. She is agreeable.
[2024-06-24] MEDS: NICOTINE PATCH 21 MG/24 HR PATCH.TD24 TOP (20:41)
[2024-06-24] MEDS: levETIRAcetam INJ 100 MG/ML VIAL 5ML 1000 MG IVP (20:42)
[2024-06-24] MEDS: HEPARIN SOD INJ 5000 UNIT/ML VIAL SC (21:02)
[2024-06-25] VITALS (11 sets, daily range): BP systolic 103–135; BP diastolic 59–79; PULSE 80–115; RESP 17–97; TEMP 36.4–37.3; O2SAT 95–97; BMI 34.9
[2024-06-25] MEDS: PIPER/TAZO 3.375 GM PREMIX 3.375 GM/50 ML BAG IV ×3 (00:18→17:32)
[2024-06-25 05:27] LABS: Basophils # (Auto) 0.1 Thou/mm3 (0.0-0.2); Basophils % (Auto) 0 % (0-2.5); Eosinophils # (Auto) 0.3 Thou/mm3 (0.0-0.5); Eosinophils % (Auto) 2 % (0-10); Hematocrit 41.8 % (36.0-46.0); Hemoglobin 14.3 g/dL (12.0-16.0); Immature Granulocytes % (Auto) 1 % (0-0); Immature Granulocytes Auto 0.09 Thou/mm3 (0.00-0.00); Lymphocytes % (Auto) 19 % (10-50); Mean Corpuscular HGB Conc 34.2 g/dl (31.0-37.0); Mean Corpuscular Volume 88 fL (80-100); Monocytes # (Auto) 1.2 Thou/mm3 (0.0-0.8); Monocytes % (Auto) 7 % (0-12); Neutrophils # (Auto) 11.5 Thou/mm3 (1.8-7.7); Neutrophils % (Auto) 72 % (37-80); Nucleated Red Blood Cell % 0 /100 WBC (0); Platelet Count 267 Thou/mm3 (140-440); RDW Standard Deviation 43.4 fL (36.4-46.3); Red Blood Count 4.76 Miln/mm3 (4.00-5.20)
[2024-06-25 05:48] LABS: Glucose Estimated Average 151 mg/dL (80-131); Hemoglobin A1C 6.9 % Hgb (4.8-6.0)
[2024-06-25 06:16] LABS: Alanine Aminotransferase 443 U/L (10-49); Albumin/Globulin Ratio 1.5 (1.2-2.2); Alkaline Phosphatase 193 U/L (46-116); Anion Gap 8 (7-16); Aspartate Amino Transferase 270 U/L (0-34); BUN/Creatinine Ratio 10 Ratio (12-20); Bilirubin,Total 2.7 mg/dL (0.3-1.2); Blood Urea Nitrogen 8 mg/dL (9-23); Calcium 8.8 mg/dL (8.3-10.6); Calcium (Corrected) 8.8 mg/dL (8.5-10.1); Carbon Dioxide 22.5 mMol/L (20.0-31.0); Cardiac Risk Estimate 2.8 RATIO (3.7-5.6); Chloride 108 mMol/L (98-107); Cholesterol 152 mg/dL (132-200); Creatinine (Component) 0.8 mg/dL (0.6-1.3); Estimated Creatinine Clearance 73.4 mL/min (>60); Globulin 2.7 gm/dL (2.3-3.5); Glucose 130 mg/dL (74-106); HDL Cholesterol 54 mg/dL (40-60); LDL Cholesterol,Calculated 76 mg/dL (0-130); Osmolality,Calculated 275 (275-295); Phosphorous 3.2 mg/dL (2.4-5.1); Potassium 3.4 mMol/L (3.4-5.1); Sodium 138 mMol/L (136-145); Thyroid Stimulating Hormone 0.76 uIU/mL (0.55-4.78); Total Protein 6.7 gm/dL (5.7-8.2); Triglycerides 108 mg/dL (30-150); eGFR > 60 See Note
[2024-06-25] MEDS: levETIRAcetam INJ 100 MG/ML VIAL 5ML 1000 MG IVP ×2 (09:22→21:07)
[2024-06-25] MEDS: NICOTINE PATCH 21 MG/24 HR PATCH.TD24 TOP (09:22)
[2024-06-25] MEDS: FAMOTIDINE INJ 10 MG/ML VIAL 2 ML 20 MG IVP (09:22)
[2024-06-25] MEDS: ACETAMINOPHEN 325 MG TABLET 650 MG PO (09:23)
[2024-06-25] MEDS: amLODIPine BESYLATE 5 MG TABLET PO (09:23)
--- NOTE | 2024-06-25 10:21 | PC.NURSE ---
Pt complaining of being very hungry. Wanting to know when procedure will occur. Dr. Flowers is on the floor. Spoke with Dr. Flowers. Per Dr. Flowers, Patient is still waiting on cardiac clearance. Dr Flowers still wanted patient to be NPO in the instance that patient may have the procedure today. went in a spoke with the patient.
--- NOTE | 2024-06-25 11:09 | ESPR_ITS ---
Documentation for date of: 06/25/24 Subjective Subjective Brief History: History of present illness revealed that the patient has had severe pain starting last night in the retrosternal area and in the upper abdomen radiating to both sides. She had no vomiting but she was nauseated. She denies having any such symptoms. She thought that she had a cardiac issue and therefore came to the emergency room and was found to have gallstones with possible acute cho lecystitis. Patient has been diagnosed with gallstones back in 2022 but apparently no surgery was done. Patient had multiple medical problems including diabetes hypertension meningioma seizures. Past surgery consisted of some cyst from the abdomen while she was 22 years old. She also had multiple abscesses in the neck in the parotid region which was drained by me in 2022. She used to weigh more and she has lost some weight. She is a poor historian. Narrative: Patient does not have much pain and she is very hungry and wants to eat. Exam Vital Signs Temp Pulse Resp BP Pulse Ox O2 Del Method 97.6 F 99 18 134/79 H 97 Room Air 06/25/24 07:49 06/25/24 09:23 06/25/24 07:49 06/25/24 09:23 06/25/24 07:49 06/25/24 07:49 Her vital signs are normal other than mild elevation of the heart rate Routine Abdominal Exam Comments: Abdominal examination shows still tenderness in the right upper quadrant on deep palpation. But no evidence of guarding or rigidity Results Results: Laboratory Laboratory Narrative: Laboratory results shows elevation of the WBC to 16,000 Assessment & Plan Assessment Additional comments: Impression: Acute cholecystitis awaiting cardiology clearance Plan Plan: We shall proceed with surgery once her cardiology clearance is done
--- NOTE | 2024-06-25 11:18 | PD.IMCONS ---
HPI Data of Consult Requesting Physician: Dakota Alexander DO Primary Care Provider: Brea Gonsales PA-C Consult Narrative History of present illness: This is a 63-year-old female with past medical history of [id number] type 2 diabetes mellitus, asthma, dyslipidemia, seizure disorder, history of meningioma, essential hypertension and obesity Epigastric pain Subsequently noted to have cholelithiasis by ultrasound Currently planning to undergo gallbladder surgery cardiology consultation requested Patient's EKG does not show any acute ST-T wave changes, troponins are negative Patient had an echocardiographic exam done in 2022 at that time ejection fraction noted to be 45% with no significant wall motion abnormalities or valve dysfunction Currently patient denies any cardiac symptoms cc:: cc: Dakota Alexander DO Meds Home Medications and Allergies Home Medications ?Medication ?Instructions ?Recorded ?Confirmed ?Type atorvastatin 20 mg tablet 20 mg PO QDAY 07/08/22 06/24/24 History empagliflozin 12.5 mg-metformin ER 2 tab PO HS 07/08/22 06/24/24 History 1,000 mg tablet,extended rel 24 hr (Synjardy XR) ergocalciferol (vitamin D2) 1,250 See Rx Instructions .Route .COMPLEX 07/08/22 06/24/24 History mcg (50,000 unit) capsule (Vitamin D2) hydrocodone 5 mg-acetaminophen 325 5 - 325 tab PO BID PRN Pain 07/08/22 06/24/24 History mg tablet levetiracetam 1,000 mg tablet 1,000 mg PO BID 07/08/22 06/24/24 History lisinopril 20 mg tablet 20 mg PO QDAY 07/08/22 06/24/24 History loratadine 10 mg tablet 10 mg PO DAILY 07/08/22 06/24/24 History naproxen 500 mg tablet,delayed 500 mg PO BID PRN Pain 07/08/22 06/24/24 History release ondansetron HCl 4 mg tablet 4 mg PO Q8H PRN Nausea 07/08/22 06/24/24 History sertraline 50 mg tablet 50 mg PO QDAY 07/08/22 06/24/24 History tirzepatide 2.5 mg/0.5 mL 2.5 mg subcut QWEEK 06/24/24 06/24/24 History subcutaneous pen injector (Mounjaro) Allergies Allergy/AdvReac Type Severity Reaction Status Date / Time codeine (From Allergy Severe itch Verified 06/24/24 11:51 Tylenol-Codeine) Exam Vital Signs Temp Pulse Resp BP Pulse Ox O2 Del Method 97.6 F 99 18 134/79 H 97 Room Air 06/25/24 07:49 06/25/24 09:23 06/25/24 07:49 06/25/24 09:23 06/25/24 07:49 06/25/24 07:49 Routine HEENT Exam Head: Present normocephalic and atraumatic Eye: Present EOMI and PERRL ENT: Present mucous membranes moist Routine Neck Exam Neck: Present supple and trachea midline Routine Respiratory Exam Respiratory: Present chest non-tender, lungs clear, normal breath sounds and no resp distress Routine Cardiovascular Exam Cardiovascular: Present RRR Routine Abdominal Exam Abdominal: Present soft and normoactive bowel sounds Routine Extremities Exam Extremities: Present full ROM Routine Skin Exam Skin: Present intact, dry and warm Routine Neurological Exam Neurological: Present alert, oriented X3 and CN II-XII intact Routine Psychiatric Exam Psychiatric: Present normal affect and normal thought process Results Labs 06/25/24 04:33 06/25/24 04:33 Labs: Short CBC 06/24/24 06/25/24 Range/Units 12:20 04:33 WBC 12.3 H 16.0 H (3.6-11.0) Thou/mm3 Hgb 14.3 14.3 (12.0-16.0) g/dL Hct 41.9 41.8 (36.0-46.0) % Plt Count 285 267 (140-440) Thou/mm3 BMP 06/24/24 06/25/24 12:20 04:33 Sodium 138 138 Potassium 4.2 3.4 D Chloride 107 108 H Carbon Dioxide 24.5 22.5 BUN 9 8 L Creatinine 0.7 0.8 Glucose 161 H 130 H Calcium 9.2 8.8 Cardiac Enzymes 06/24/24 Range/Units 12:20 Troponin I < 0.020 (0.0-0.045) ng/mL Liver Function 06/24/24 06/24/24 06/25/24 Range/Units 12:20 13:33 04:33 Total Bilirubin 1.9 H 2.7 H D (0.3-1.2) mg/dL Direct Bilirubin 0.9 H (0.0-0.3) mg/dL AST 568 H* 270 H (0-34) U/L ALT 550 H* 443 H (10-49) U/L Alkaline Phosphatase 177 H 193 H (46-116) U/L Albumin 4.4 4.0 (3.4-4.8) gm/dL Assessment and Plan Assessment and plan (1) Acute calculous cholecystitis: Status: Acute (2) Cervical spinal cord compression: Status: Acute (3) Hypertension: Status: Acute (4) Obesity: Status: Acute (5) Preop cardiovascular exam: Status: Acute Additional Assessment & Plan Additional Plan: Patient denies any cardiac symptoms EKG is unremarkable Troponins are negative Prior echo 2 years ago was unremarkable We will consider repeating another echocardiographic exam Patient is considered to be in optimal cardiac condition for the planned surgical procedure
--- NOTE | 2024-06-25 11:25 | PC.NURSE ---
Dr Alexander and team came by to see patient. Dr. Alexander said he will order the patient a diet due to patient not having the procedure today. I informed Dr. Alexander that I spoke with Dr. Flowers this morning and he would like patient to remain NPO for possible procedure this afternoon. Dr. Alexander said he spoke to Dr. Flowers in the eng just a few minutes prior to now and that Dr. Flowers will not being doing the procedure today and patient may eat. Diet ordered for patient at 11:23.
--- NOTE | 2024-06-25 13:20 | PC.NURSE ---
Dr. Flowers called and asked if the patient was ready to go to procedure. said patient was cleared for procedure by patent examiner and Dr. Flowers can take patient now. I informed that patient already ate and the conversation I previously had with Dr. Alexander. Dr. Flowers said he never allowed for patient to eat. Pt will have to be NPO after midnight and Procedure will have to happen tomorrow.
--- NOTE | 2024-06-25 13:43 | ESPR_ITS ---
Documentation for date of: 06/25/24 Subjective Subjective Interval history: WBC up trended to 16. Labs significant for mild elevation of T. bili and ALP. Patient cleared by cardiology Dr. Sears for surgery. Per Dr. Flowers, patient might undergo cholecystectomy tonight. Exam Vital Signs Temp Pulse Resp BP Pulse Ox O2 Del Method 97.6 F 112 H 18 116/59 L 97 Room Air 06/25/24 12:00 06/25/24 12:00 06/25/24 12:00 06/25/24 12:00 06/25/24 12:06/25/24 12:00 Narrative Exam General: Awake and in no acute distress. Conversational and non-toxic appearing. HEENT: Normocephalic, atraumatic, mucous membranes moist. Heart: Tachycardic and regular rhythm, no murmurs. Lungs: Clear to auscultation with no wheezing or crackles. Abdomen: Soft, nondistended, positive tenderness noted epigastrium, right upper quadrant and left upper quadrant. Neurologic: Alert and oriented x3, no gross neurological deficit, and patient able to move all 4 extremities. Extremities: No edema. Objective Labs 06/25/24 04:33 06/25/24 04:33 Labs: Laboratory Results - last 24 hr 06/24/24 06/25/24 13:33 04:33 WBC 16.0 H RBC 4.76 Hgb 14.3 Hct 41.8 MCV 88 MCH 30.0 MCHC 34.2 RDW Std Deviation 43.4 Plt Count 267 Neut % (Auto) 72 Lymph % (Auto) 19 [place] % (Auto) 7 Eos % (Auto) 2 Baso % (Auto) 0 Neut # (Auto) 11.5 H Lymph # (Auto) 3.0 [place] # (Auto) 1.2 H Eos # (Auto) 0.3 Baso # (Auto) 0.1 Immature Gran # (Auto) 0.09 H Absolute Nucleated RBC 0.00 Immature Gran % 1 H Nucleated RBC % 0 Sodium 138 Potassium 3.4 D Chloride 108 H Carbon Dioxide 22.5 Anion Gap 8 BUN 8 L Creatinine 0.8 Estim Creat Clear Calc 73.4 eGFR > 60 BUN/Creatinine Ratio 10 L Glucose [address] Glu mg/dL 151 H Hemoglobin A1c 6.9 H Calculated Osmolality 275 Calcium 8.8 Corrected Calcium 8.8 Phosphorus 3.2 Magnesium 2.0 Total Bilirubin 2.7 H D Direct Bilirubin 0.9 H AST 270 H ALT 443 H Alkaline Phosphatase 193 H Total Protein 6.7 Albumin 4.0 Globulin 2.7 Albumin/Globulin Ratio 1.5 Triglycerides 108 Cholesterol 152 LDL Cholesterol, Calc 76 HDL Cholesterol 54 Cholesterol/HDL Ratio 2.8 L TSH 0.76 Hepatitis A IgM Ab Non Reactive Hep Bs Antigen Non Reactive Hep B Core IgM Ab Non Reactive Hepatitis C Antibody Non Reactive Quality Measures Quality Measures none Assessment & Plan Assessment Current Active Medications: Generic Name Dose Route Start Last Admin Trade Name Freq PRN Reason Stop Dose Admin Acetaminophen 650 mg 06/24/24 16:00 06/25/24 09:23 Acetaminophen 325 Mg Tablet PO 07/24/24 15:59 650 mg Q6H PRN Administration Pain (1-3) & Fever >101.5 Hydrocodone Bitart/Acetaminophen 1 tab 06/24/24 16:05 Hydrocodone/Apap 5/325 Tablet PO 06/29/24 16:04 Q4HR PRN PAIN SCALE 4-6 (Moderate Al Hydrox/Mg Hydrox/Simethicone 30 ml 06/24/24 16:05 Mg Hyd/Al Hyd/Car (Maalox Reg) Susp 30 Ml Udc PO 07/24/24 16:04 Q6H PRN Indigestion Albuterol/Ipratropium 3 ml 06/24/24 16:00 Albuterol/Ipratropium (Duoneb) Rt Cornelia 3 Ml Nebu INH 07/24/24 15:59 Q2HR PRN SHORTNESS OF BREATH OR WHEEZE Amlodipine Besylate 5 mg 06/24/24 16:30 06/25/24 09:23 Amlodipine Besylate 5 Mg Tablet PO 07/24/24 16:29 5 mg QDAY CHRISTINE Administration Dextrose 25 ml 06/24/24 16:11 Dextrose 50%-Water Inj 50 Ml Syringe IV 07/24/24 16:10 Q15MIN PRN BG 50-70 responsive npo pt Dextrose 50 ml 06/24/24 16:11 Dextrose 50%-Water Inj 50 Ml Syringe IV 07/24/24 16:10 Q15MIN PRN BG <50 OR BG <70 & pt unresponsive Dextrose 25 ml 06/25/24 11:49 Dextrose 50%-Water Inj 50 Ml Syringe IV 07/25/24 11:48 Q15MIN PRN BG 50-70 responsive npo pt Dextrose 50 ml 06/25/24 11:49 Dextrose 50%-Water Inj 50 Ml Syringe IV 07/25/24 11:48 Q15MIN PRN BG <50 OR BG <70 & pt unresponsive Famotidine 20 mg 06/24/24 16:15 06/25/24 09:22 Famotidine Inj 10 Mg/Ml Vial 2 Ml IVP 07/24/24 16:14 20 mg QDAY CHRISTINE Administration Glucagon 1 mg 06/24/24 16:11 Glucagon Inj 1 Mg Vial IM Q15MIN PRN BG <70, and no IV access Glucagon 1 mg 06/25/24 11:49 Glucagon Inj 1 Mg Vial IM Q15MIN PRN BG <70, and no IV access Heparin Sodium (Porcine) 5,000 unit 06/24/24 22:00 06/25/24 09:26 Heparin Sod Inj 5000 Unit/Ml Vial SC 07/08/24 21:59 Not Given Q12H CHRISTINE Piperacillin/Tazobactam/Dextrose 3.375 gm in 50 mls @ 12.5 mls/hr 06/24/24 17:00 06/25/24 09:23 Zosyn IV 07/01/24 16:59 12.5 mls/hr Q8H CHRISTINE Administration Insulin Human Lispro 0 unit 06/25/24 17:00 Insulin Lispro (Admelog) 1 Unit/0.01 Ml Unit SC 07/25/24 16:59 AC CHRISTINE Protocol Levetiracetam 1,000 mg 06/24/24 21:00 06/25/24 09:22 Levetiracetam Inj 100 Mg/Ml Vial 5ml IVP 07/24/24 20:59 1,000 mg Q12HR CHRISTINE Administration Morphine Sulfate 2 mg 06/24/24 16:05 Morphine Sulf Inj 10 Mg/Ml Vial IVP 06/29/24 16:04 Q4H PRN PAIN SCALE 7-10 (Severe Nicotine 21 mg 06/24/24 18:45 06/25/24 09:22 Nicotine Patch 21 Mg/24 Hr Patch.Td24 TOP 07/24/24 18:44 21 mg QDAY CHRISTINE Administration Ondansetron HCl 4 mg 06/24/24 16:05 Ondansetron Inj 2 Mg/Ml Inj 2 Ml IV 07/24/24 16:04 Q6H PRN NAUSEA OR VOMITING Protocol Plan Ms. Russell is a 63-year-old female with past medical history of rfd-hgzbrym-bensvlepy type 2 diabetes mellitus, asthma, dyslipidemia, seizure disorder, history of meningioma, essential hypertension and obesity who presented to [facility] emergency department on 06/24/2024 with a chief complaint of abdominal pain. #Acute calculus cholelithiasis #Transaminitis secondary to above #Hyperbilirubinemia secondary to above #Elevated Alk Phos. secondary to above Patient had epigastric pain, radiating to the left upper quadrant, 10 on 10, sharp, radiating to chest at times associated with nausea dry heaving chills and diaphoresis, started suddenly in the morning around 3 AM. Gallbladder ultrasound shows porcelain gallbladder, cholelithiasis negative for cholecystitis. MRCP shows acute calculus cholecystitis Total bilirubin 1.9, direct bilirubin 0.9, AST 568 ALT 550, alk phos 177, troponin negative. Lipase negative. RCRI risk score:2 , METS > [address] Sears cleared patient for surgery Plan: -Scheduled for surgical intervention in p.m. -Pain management with Tylenol, [place], IV morphine as needed -IV Zosyn 3.375 every 8 hours prophylactic -Zofran as needed for nausea and vomiting -General surgery Dr. Flowers onboard, recommendations are greatly appreciated -Follow CMP in a.m. #Seizure disorder #Meningioma, by history Patient reports taking no medications at home, reported that she stopped medications about 6 months ago, denies having a seizure recently, did report that she did have 1 episode of seizure but did not follow-up with primary care physician or neurologist. Patient was on Keppra 1000 mg twice daily previously. - Resumed IV Keppra 1000 mg twice daily - Consulted neurology, appreciate recommendations - Seizure precaution - Aspiration precaution #Congestive heart failure with mid-range ejection fraction, EF 45 to 50% (2022) Poor outpatient follow-up, is not on any medications, currently not in any acute exacerbation ECHO 2022: Normal LV size, low normal systolic function. Moderate hypokinesis apical and mid septal wall motion. Estimated EF 45-50% Normal RV size and function. Trace TR. Plan: - Cardiology Dr. Sears onbard, appreciate recommendations - Strict intake and output - Daily weight - Fluid restriction 1800 cc - Ordered echocardiogram #Hypertensive urgency #Throbbing headache #Hypertension Patient presented with blood pressure 172/96, was given hydralazine 10 mg IV x 1 in emergency department Plan: - As needed IV hydralazine every 6 hours for SBP greater than 160, diastolic blood pressure greater than 100 - Amlodipine 5 mg daily #Type 2 diabetes mellitus July 2022 hemoglobin A1c 9.6 - Sliding scale insulin - Inpatient blood glucose goal 140-180 - Hypoglycemia protocol - Fingerstick ACHS - Follow hemoglobin A1c in a.m. #Hyperlipidemia Will hold statins in setting of transaminitis Follow lipid panel in a.m. #Asthma DuoNeb as needed DVT prophylaxis: Heparin every 12 hours GI prophylaxis: Famotidine IV Diet: Carb consistent diet, n.p.o. after midnight Lines: Peripheral IV Code status: Full code This patient care was discussed with my attending Dr. Benjamin Borrego MD PGY-2 Disclaimer: Minor errors in teradata architect may be present since this note was dictated by speech recognition software. Attending Provider Attestation/Addendum I have discussed and was present for the essential components of the history, physical examination, diagnosis, and treatment plan with the resident. I agree with the patient's care as documented by the resident and amended herein by me. Bertram Alexander, DO. Patient seen and evaluated this AM. No acute events overnight, vital signs stable, patient afebrile, WBC up trended to 16 today, T. bili up to 2.7. Cardiology consulted for preop clearance considering history of HFmEF approximately 2 years ago however cardiology determined that echo was largely unremarkable, she is cleared for surgery. We can consider an echo before discharge or the patient can likely get this outpatient. Will continue Zosyn for now and continue monitoring closely until surgery. Although this document has been carefully reviewed, there may still be some phonetic and other typographical errors. These errors are purely grammatical due to imperfections in the software program and should not be construed in any way to compromise the substance of the patient's medical care during this visit.
[2024-06-25] MEDS: MORPHINE SULF INJ 10 MG/ML VIAL 2 MG IVP (19:49)
--- NOTE | 2024-06-25 20:13 | PD.SURPROG ---
Documentation for date of: 06/25/24 Subjective Subjective Brief History: History of present illness revealed that the patient has had severe pain starting last night in the retrosternal area and in the upper abdomen radiating to both sides. She had no vomiting but she was nauseated. She denies having any such symptoms. She thought that she had a cardiac issue and therefore came to the emergency room and was found to have gallstones with possible acute cholecystitis. Patient has been diagnosed with gallstones back in 2022 but apparently no surgery was done. Patient had multiple medical problems including diabetes hypertension meningioma seizures. Past surgery consisted of some cyst from the abdomen while she was 22 years old. She also had multiple abscesses in the neck in the parotid region which was drained by me in 2022. She used to weigh more and she has lost some weight. She is a poor historian. Narrative: The patient was very hungry and ate lunch today. She developed some abdominal pain and requiring morphine. Exam Vital Signs Temp Pulse Resp BP Pulse Ox O2 Del Method 97.6 F 108 H 18 103/67 97 Room Air 06/25/24 16:00 06/25/24 16:00 06/25/24 16:00 06/25/24 16:00 06/25/24 16:00 06/25/24 16:00 Her vital signs are normal other than tachycardia Routine Respiratory Exam Comments: Abdominal exam shows still tenderness in the right upper quadrant with a positive Ramirez sign Assessment & Plan Assessment Additional comments: Impression: Patient Financial Advocate has cleared her for surgery Plan Plan: Visual proceed with laparoscopic or open cholecystectomy tomorrow. Patient was told about the procedure in detail including potential complications like trocar injury especially if there are adhesions from the previous surgery. I am not sure that we can do a laparoscopic approach because of the right upper quadrant incision which may block the views of the gallbladder however we will make an attempt to see if those adhesions are mild and hopefully can do a laparoscopic approach. If not patient will undergo open cholecystectomy. This was explained to her on the potential risk like wound infection and her hospital stay for at least to 3 days after the procedure. She is agreeable.
[2024-06-25] MEDS: HEPARIN SOD INJ 5000 UNIT/ML VIAL SC (21:07)
[2024-06-26] VITALS (15 sets, daily range): BP systolic 102–145; BP diastolic 61–80; PULSE 84–110; RESP 15–98; TEMP 36.2–36.8; O2SAT 93–99
[2024-06-26] MEDS: PIPER/TAZO 3.375 GM PREMIX 3.375 GM/50 ML BAG IV ×2 (00:36→08:48)
[2024-06-26 05:48] LABS: Basophils # (Auto) 0.1 Thou/mm3 (0.0-0.2); Basophils % (Auto) 1 % (0-2.5); Eosinophils # (Auto) 0.5 Thou/mm3 (0.0-0.5); Eosinophils % (Auto) 3 % (0-10); Hematocrit 42.2 % (36.0-46.0); Hemoglobin 14.2 g/dL (12.0-16.0); Immature Granulocytes % (Auto) 1 % (0-0); Immature Granulocytes Auto 0.22 Thou/mm3 (0.00-0.00); Lymphocytes # (Auto) 4.1 Thou/mm3 (1.0-4.8); Lymphocytes % (Auto) 23 % (10-50); Mean Corpuscular HGB Conc 33.6 g/dl (31.0-37.0); Mean Corpuscular Hemoglobin 29.4 pg (25.0-35.0); Mean Corpuscular Volume 87 fL (80-100); Monocytes # (Auto) 1.5 Thou/mm3 (0.0-0.8); Monocytes % (Auto) 8 % (0-12); Neutrophils # (Auto) 11.2 Thou/mm3 (1.8-7.7); Neutrophils % (Auto) 64 % (37-80); Nucleated Red Blood Cell % 0 /100 WBC (0); Platelet Count 280 Thou/mm3 (140-440); RDW Standard Deviation 44.3 fL (36.4-46.3); Red Blood Count 4.83 Miln/mm3 (4.00-5.20); White Blood Count 17.6 Thou/mm3 (3.6-11.0)
[2024-06-26 06:46] LABS: Alanine Aminotransferase 270 U/L (10-49); Albumin/Globulin Ratio 1.4 (1.2-2.2); Alkaline Phosphatase 183 U/L (46-116); Anion Gap 9 (7-16); Aspartate Amino Transferase 101 U/L (0-34); BUN/Creatinine Ratio 11 Ratio (12-20); Bilirubin,Direct 0.5 mg/dL (0.0-0.3); Bilirubin,Total 1.3 mg/dL (0.3-1.2); Blood Urea Nitrogen 9 mg/dL (9-23); Calcium 8.9 mg/dL (8.3-10.6); Calcium (Corrected) 8.9 mg/dL (8.5-10.1); Carbon Dioxide 22.3 mMol/L (20.0-31.0); Chloride 109 mMol/L (98-107); Creatinine (Component) 0.8 mg/dL (0.6-1.3); Estimated Creatinine Clearance 71.8 mL/min (>60); Globulin 2.8 gm/dL (2.3-3.5); Glucose 150 mg/dL (74-106); Magnesium 2.1 mg/dL (1.6-2.6); Osmolality,Calculated 281 (275-295); Phosphorous 2.7 mg/dL (2.4-5.1); Potassium 3.5 mMol/L (3.4-5.1); Sodium 140 mMol/L (136-145); Total Protein 6.8 gm/dL (5.7-8.2); eGFR > 60 See Note
[2024-06-26] MEDS: amLODIPine BESYLATE 5 MG TABLET PO (08:45)
[2024-06-26] MEDS: levETIRAcetam INJ 100 MG/ML VIAL 5ML 1000 MG IVP (08:46)
[2024-06-26] MEDS: FAMOTIDINE INJ 10 MG/ML VIAL 2 ML 20 MG IVP (08:46)
[2024-06-26] MEDS: NICOTINE PATCH 21 MG/24 HR PATCH.TD24 TOP (08:47)
--- NOTE | 2024-06-26 10:58 | PD.SUROPNT ---
Date of Procedure 06/26/24 Pre Op Diagnosis Acute calculus cholecystitis with stone in the neck of the gallbladder Post Op Diagnosis Same, hydrops of the gallbladder Procedure Laparoscopic cholecystic Findings Patient was found to have extensive inflammation of the gallbladder with obstruction to the cystic duct because of the stone impacted in the neck of the gallbladder. Patient also had considerable amount of adhesions in the periumbilical region from the previous surgery Procedure Description After endotracheal anesthesia was given the patient was placed in supine position and the abdomen was prepped with chloroprep solution and draped in a sterile manner. After time out was performed I injected a few cc of of half percent Marcaine with epinephrine below the umbilicus and I made an incision for about 3 cm in length. The fascia was cleaned and Veress needle was inserted to create a pneumoperitoneum up to 15 mmHg. Then introduced a 12 mm trocar and a 10 mm camera through the fascia and I inspected the intra-abdominal organs as well as the gallbladder and the liver. Surprisingly the adhesions were in the midportion of the abdomen above the umbilicus and not in the right upper quadrant even though the incision was in the subcostal region. Another 5 mm trocar was inserted in the epigastric region under direct vision after injecting some local anesthesia. At this time the patient was kept in reverse Trendelenburg position with the left lateral tilt. The third 5 mm trocar was inserted over the mid axillary line under direct vision and a Rizwan and Scout grasper was used to hold the fundus of the gallbladder. The retraction was carried out by the assistant fitness manager moving the fundus of the gallbladder towards the right shoulder of the patient to create enough traction. I used a needle to decompress the bile from the gallbladder which was tense and could not be grasped. I placed a another 5 mm trocar in the midaxillary line just lateral to the rectus muscle under direct vision. I used a fenestrated grasper to retract the neck of the gallbladder laterally towards the patient's right hip. The Calot's triangle was exposed and I achieved the critical view of safety as follows: I dissected out the fatty tissue from the hepatocystic triangle and cleared this area. I also dissected inferior and posterior to the gallbladder to identify the cystic duct and the gallbladder wall. Then superiorly I dissected along the cystic plate up to lower one third third of the gallbladder to lift the gallbladder from the liver. At this time I confirmed that only 2 structures entering the gallbladder were cystic artery and the cystic duct. The common duct was seen distally but no dissection was carried out around the duct. I did not see any need for operative cholangiogram in this patient. The cystic duct was clipped doubly and then divided and cystic artery was similarly dealt with. Then the gallbladder was removed from the liver bed using Harmonic samira to control the small blood vessels as the dissection proceeded. Then the gallbladder was from the liver bed completely and delivered through the epigastric port which was changed to a 12 mm in size because of the adhesions at the umbilical area. Port using an Endopouch. The liver bed was coagulated with cautery to obtain satisfactory hemostasis. The trocars were pulled out from the abdominal cavity and the fascia at the umbilical incision was closed with interrupted 0 Ethibond. The fascia in the epigastric region was closed with 3 sutures of Ethibond. I also used a Daniel Rose device to use the initial closure of the fascia. Subcutaneous tissues was closed with 3-0 chromic and injected a few cc of half percent Marcaine with epinephrine and the skin was closed with interrupted 4-0 nylon stitches at all the trocar sites. Dressing was applied with 2 x 2 and Tegaderm. Patient tolerated the procedure well and returned to recovery room in stable condition. Anesthesia GETA Pathology / specimen Other (Gallbladder and the stones) IVF Infused 1,000 Estimated Blood Loss 30 Condition Stable Disposition PACU Surgeon Fred Branch MD Surgical Staff Operation Date: 06/26/24 09:00 Case Staff NURSING EDUCATION CONSULTANT: Kong Cavazos RNcharter coach driver: Aristeo Celeste
--- NOTE | 2024-06-26 11:04 | SUR.PHASEI ---
Pt. arrived to recovery via [facility] almonte, pt. has oral airway in place, receiving 8 liters 02 via oxymask, lung sounds clear with rhonchi noted on inspiration, equal expansion alex., lap sites x3 to abdomen, sutures, 2x2 gauze and metaport tape intact, no active bleeding or redness noted. Report received from Zhou STAHL and Randy BOYLE.
[2024-06-26] MEDS: ACETAMINOPHEN IVPB 1,000 MG/100 ML VIAL 250 MG IV (11:23)
--- NOTE | 2024-06-26 11:41 | SUR.PHASEI ---
Called and gave report on pt. s/p surgery to Jerilyn BOYLE on M/S unit. Pt. is stable, VSS, resting with eyes closed, responds to verbal commands.
--- NOTE | 2024-06-26 11:48 | SUR.PHASEI ---
Pt. transferred to room 367 by staff. Pt. is resting with eyes closed, responds to verbal commands, VSS, pt. receiving 2 liters 02 via NC, lap sites x3 to abdomen CDI, no c/o pain or nausea at this time, IV flushed and patent, Jerilyn BOYLE assumed care of pt.
[2024-06-26] MEDS: INSULIN LISPRO (AdmeLOG) 1 UNIT/0.01 ML UNIT SC (12:21)
[2024-06-26] MEDS: HYDROcodone/APAP 5/325 TABLET 1 TAB PO (12:47)
--- NOTE | 2024-06-26 14:13 | ESDS_ITS ---
Planned Discharge Date 06/26/24 DS: Providers Provider Date of admission: 06/24/24 16:00 Primary care physician: Brea Gonsales PA-C Admitting Provider: Dakota Alexander DO Attending Provider on Admission: Dakota Alexander DO Consults: 06/24/24 15:17 Consult to Gastroenterology Stat Comment: Acute calculus cholecystitis Consulting Provider: Fred Branch 06/24/24 16:11 Consult to Neurology / Tele-Neurology Stat Comment: History of Seizures Consulting Provider: Meng Gutierrez 06/24/24 16:12 Referral Registered Dietitian Routine Comment: Referral Registered Dietitian Urgent Comment: 06/24/24 19:52 Consult to Cardiology Urgent Comment: Cardiac clearance Consulting Provider: Santiago Sears Attending Provider on DC: Donald Borrego MD Discharging Provider: Donald Borrego MD DS: Diagnosis Problem List Completed Was Problem List Reviewed/Reconciled?: Yes Hospital Course Hospital Course Hospital course: Miss Russell a 63-year-old female with past medical history of [id number] type 2 diabetes mellitus, asthma, dyslipidemia, seizure disorder, history of meningioma, essential hypertension and obesity who presented to [facility] emergency department on 06/24/2024 with a chief complaint of abdominal pain. Patient describes the pain in epigastric region, radiating down to the right and left upper quadrant, reports significant tenderness. WBC was mildly elevated at 12.3, total bilirubin 1.9, direct bilirubin 0.9, AST 568 ALT 550, alk phos 177. Gallbladder ultrasound shows porcelain gallbladder, cholelithiasis negative for cholecystitis chest x-ray shows no active disease MRCP shows acute calculus cholecystitis. General surgery was consulted in ED, recommended admission. Patient underwent successful laproscopic cholecystectomy. Post surgery, patient tolerated diet well and had bowel movement. Patient was deemed clear for discharge to home on pain med. Discharge summary was reviewed with my attending Dr. Alexander. Donald Borrego, PGY-2 #Acute calculus cholecystitis #Seizure disorder #Meningioma, by history #Congestive heart failure with mid-range ejection fraction, EF 45 to 50% (2022) #Hypertensive urgency #Type 2 diabetes mellitus #Hyperlipidemia #Asthma history Time Spent with Patient Time attestation: Total time spent providing and/or coordinating discharge services: Time spent: Greater than 30 minutes Exam Vital Signs Temp Pulse Resp BP Pulse Ox O2 Del Method O2 Flow Rate 97.4 F 84 17 104/64 93 L Nasal Cannula 2 06/26/24 12:53 06/26/24 12:53 06/26/24 12:53 06/26/24 12:53 06/26/24 12:53 06/26/24 12:53 06/26/24 12:53 Narrative Exam General: Awake and in no acute distress. Conversational and non-toxic appearing. HEENT: Normocephalic, atraumatic, mucous membranes moist. Heart: Tachycardic and regular rhythm, no murmurs. Lungs: Clear to auscultation with no wheezing or crackles. Abdomen: Soft, nondistended, mild tenderness noted epigastrium near site of surgery, no discharge, no erythema Neurologic: Alert and oriented x3, no gross neurological deficit, and patient able to move all 4 extremities. Discharge Plan Plan Patient Disposition: HOME (Self Care) Disposition Comment: Stable Prescriptions/Referrals Prescriptions/Med Rec: New hydrocodone-acetaminophen 5-300 mg tablet 1 tab PO Q8H MDD 15 mg PRN (Reason: pain) Qty: 15 0RF Continued lisinopril 20 mg Tablet 20 mg PO QDAY ondansetron HCl 4 mg Tablet 4 mg PO Q8H PRN (Reason: Nausea) sertraline 50 mg Tablet 50 mg PO QDAY loratadine 10 mg Tablet 10 mg PO DAILY levetiracetam 1,000 mg Tablet 1,000 mg PO BID Mounjaro 2.5 mg/0.5 mL pen injector 2.5 mg subcut QWEEK Patient Comments: inject 2 & 1/2 milligram subcutaneously every week Discontinued atorvastatin 20 mg Tablet 20 mg PO QDAY hydrocodone-acetaminophen 5-325 mg Tablet 5 - 325 tab PO BID PRN (Reason: Pain) naproxen 500 mg Tablet,Delayed Release (Dr/Ec) 500 mg PO BID PRN (Reason: Pain) ergocalciferol (vitamin D2) [Vitamin D2] 1,250 mcg (50,000 unit) Capsule See Rx Instructions .ROUTE .COMPLEX Rx Instructions: 1,250 mcg orally q thursday Synjardy XR 12.5-1,000 mg Tablet, Ir - Er, Biphasic 24hr 2 tab PO HS Referrals: Brea Gonsales PA-C [Primary Care Provider] - Fred Branch MD [Physician] - Patient/Caregiver Discharge Instructions Other Discharge Activity Instructions:: Please see your PCP and general surgeon within x1 week of discharge If pain worsens, fever, chills, go to your nearest hospital/ED Take your pain medication as needed Education Materials: Cholecystectomy, Cholecystectomy Laparoscopic Dc, Preventing Surgical Site Infections Print Language: Bulgarian Stand Alone Forms: Clotilde Award Info., Patient Portal Info Letter Discharge Order Discharge Orders: Discharge (Routine); Ordered 06/26/24 Ordered By: Donald Borrego Quality Discharge Quality Measures VTE prophylaxis MD Attestestation MD Attestation I have discussed and was present for the essential components of the discharge history, physical examination, diagnosis, and discharge treatment plan with the resident. I agree with the patient's discharge care as documented by the resident and amended herein by me. Bertram Alexander, . The patient understood all discharge instructions, all questions were answered satisfactorily. The patient was instructed to return to the Emergency Department is symptoms worsened or persisted. Patient was stable, afebrile, tolerating p.o. intake and ambulatory with discharge home. Patient did have a BM prior to leaving. Discharge cleared with surgery. All questions answered satisfactorily. Although this document has been carefully reviewed, there may still be some phonetic and other typographical errors. These errors are purely grammatical due to imperfections in the software program and should not be construed in any way to compromise the substance of the patient's medical care during this visit.
== END 2024-06-26 15:27 | disposition home or self-care (01) | DRG 263 ==
LOC: SERX 15:35 → SERHOLD 16:13 → S3NX 19:53 → S3SX 06-25 09:12
PROVIDERS: Nurse Practitioner Family; Nurse Practitioner Primary Care; Surgery; Admitting Provider Student in an Organized Health Care Education/Training Program; Emergency Provider Emergency Medicine; PCP Specialist; Visit Provider Student in an Organized Health Care Education/Training Program
PROC: 0FT44ZZ Resection of Gallbladder, Percutaneous Endoscopic Approach (ICD-10-PCS; CPT 47562; principal; 2024-06-26 09:00)
DX: K80.00 Calculus of gallbladder with acute cholecystitis without obstruction (principal); G40.909 Epilepsy, unspecified, not intractable, without status epilepticus; I50.22 Chronic systolic (congestive) heart failure; I11.0 Hypertensive heart disease with heart failure; I16.0 Hypertensive urgency; K82.1 Hydrops of gallbladder; E11.9 Type 2 diabetes mellitus without complications; J45.909 Unspecified asthma, uncomplicated; F17.210 Nicotine dependence, cigarettes, uncomplicated; F32.A Depression, unspecified; E66.9 Obesity, unspecified; G95.20 Unspecified cord compression; E78.00 Pure hypercholesterolemia, unspecified; Z91.148 Patient's other noncompliance with medication regimen for other reason; Z79.82 Long term (current) use of aspirin; Z68.35 Body mass index [BMI] 35.0-35.9, adult
CPT/HCPCS: 36415; 71045; 76705; 80053; 80061; 80074; 80076; 82248; 83036; 83690; 83735; 84100; 84443; 84484; 85025; 93005; 93225; 96361; 96365; 99285; A4217; A4649; J0131; J0360; J1100; J1643; J1815; J1885; J1953; J2250; J2270; J2371; J2405; J2543; J2704; J3010; J3490; J7120; S8037; 74181; A9270